=== PATIENT | female | born 1945 | race Caucasian/White ===

== ENCOUNTER 2017-11-13 14:44 | Emergency (ER) | payer OTHER ==
[~2017-11-13] VITALS: Ht 162.6 cm; Wt 75.7 kg
[~2017-11-13 14:44] MED LIST: CALTRATE 600600 MG PO; CRESTOR10 MG PO; EQ VISION FORM1 EACH PO; NABUMETONE500 MG PO; NAPROXEN250 MG PO; PERCOCET 5/3251 TAB PO; PRILOSEC20 MG PO
== END 2017-11-13 17:40 | disposition home or self-care (01) ==
LOC: ER 14:44
DX: N83.291 Other ovarian cyst, right side (principal); N39.0 Urinary tract infection, site not specified; R10.31 Right lower quadrant pain; R10.2 Pelvic and perineal pain

== ENCOUNTER → 2018-12-12 12:37 | Outpatient (CLI) | payer OTHER | END | disposition home or self-care (01) | LOC: LAB 12:37 | DX: N39.0 Urinary tract infection, site not specified (principal) ==

== ENCOUNTER 2020-12-06 08:29 | Outpatient (CLI) | payer OTHER | END 2020-12-06 09:17 | disposition home or self-care (01) | LOC: SONOGRAMA 08:29 | PROVIDERS: ATTEND Pathology Anatomic Pathology & Clinical Pathology | DX: E04.1 Nontoxic single thyroid nodule (principal); E04.8 Other specified nontoxic goiter; D34 Benign neoplasm of thyroid gland ==

== ENCOUNTER 2021-08-15 08:15 | Inpatient (IN) | payer OTHER ==
[~2021-08-15] VITALS: Ht 162.6 cm; Wt 75.7 kg
[2021-08-21] MEDS ORDERED: IBUPROFEN200 M1 (08:13)
[2021-08-21] MEDS ORDERED: BIOTIN10000 MCG (08:13)
== END 2021-08-22 18:54 | disposition home or self-care (01) | DRG 470 ==
LOC: SURG 08-20 05:30 → O/R 08-20 05:30 → OB/GYN 08-20 08:15 → SURG 08-20 11:19 → OB/GYN 08-20 12:15 → SURG 08-22 18:54
PROVIDERS: ADMIT Orthopaedic Surgery; ATTEND Orthopaedic Surgery
PROC: 0SRC0J9 Replacement of Right Knee Joint with Synthetic Substitute, Cemented, Open Approach (ICD-10-PCS; principal; 2021-08-20 12:15)
DX: M17.11 Unilateral primary osteoarthritis, right knee (principal); D62 Acute posthemorrhagic anemia; N39.0 Urinary tract infection, site not specified; M85.661 Other cyst of bone, right lower leg; Z20.822 Contact with and (suspected) exposure to COVID-19

== ENCOUNTER → 2022-01-29 | Emergency (ER) | payer OTHER ==
[~2022-01-29] VITALS: Ht 165.1 cm; Wt 75.3 kg
[~2022-01-29] MED LIST changes: +BIOTIN10000 MCG; +IBUPROFEN200 M1
== END | disposition home or self-care (01) ==
LOC: ER 13:01
DX: M25.561 Pain in right knee (principal); Z96.653 Presence of artificial knee joint, bilateral; M25.461 Effusion, right knee

== ENCOUNTER 2022-05-01 07:04 | Outpatient (CLI) | payer OTHER | END 2022-05-01 07:06 | disposition home or self-care (01) | LOC: NUCLEAR 07:04 | PROVIDERS: ATTEND Orthopaedic Surgery | DX: M25.561 Pain in right knee (principal) | CPT/HCPCS: 78315; A9503 ==

== ENCOUNTER → 2022-06-19 | Outpatient (CLI) | payer OTHER | END | disposition home or self-care (01) | LOC: RAD 14:12 | PROVIDERS: ATTEND Internal Medicine Rheumatology | DX: Z96.651 Presence of right artificial knee joint (principal) ==

== ENCOUNTER 2022-07-08 13:11 | Outpatient (CLI) | payer OTHER | END 2022-07-08 13:12 | disposition home or self-care (01) | LOC: RAD 13:11 | PROVIDERS: ATTEND Chiropractor | DX: M41.34 Thoracogenic scoliosis, thoracic region (principal); M99.03 Segmental and somatic dysfunction of lumbar region; M99.02 Segmental and somatic dysfunction of thoracic region ==

== ENCOUNTER 2022-09-18 14:53 | Outpatient (CLI) | payer OTHER | END 2022-09-18 14:57 | disposition home or self-care (01) | LOC: RAD 14:53 | PROVIDERS: ATTEND Orthopaedic Surgery | DX: M25.561 Pain in right knee (principal); M25.562 Pain in left knee ==

== ENCOUNTER 2023-06-09 13:06 | Outpatient (CLI) | payer OTHER | END 2023-06-09 13:17 | disposition home or self-care (01) | LOC: MAMO-SONO 13:06 | PROVIDERS: ATTEND Otolaryngology Otology & Neurotology | DX: N60.11 Diffuse cystic mastopathy of right breast (principal); N60.12 Diffuse cystic mastopathy of left breast; N85.00 Endometrial hyperplasia, unspecified; Z12.31 Encounter for screening mammogram for malignant neoplasm of breast ==

== ENCOUNTER 2023-07-20 14:16 | Outpatient (CLI) | payer OTHER | END 2023-07-20 14:21 | disposition home or self-care (01) | LOC: RAD 14:16 | PROVIDERS: ATTEND Internal Medicine Rheumatology | DX: M15.0 Primary generalized (osteo)arthritis (principal) ==

== ENCOUNTER 2023-12-09 13:17 | Outpatient (CLI) | payer OTHER | END 2023-12-09 13:29 | disposition home or self-care (01) | LOC: MRI 13:17 | DX: M48.07 Spinal stenosis, lumbosacral region (principal) | CPT/HCPCS: 72148 ==

== ENCOUNTER 2024-06-10 14:07 | Outpatient (CLI) | payer OTHER | END 2024-06-10 14:09 | disposition home or self-care (01) | LOC: RAD 14:07 | DX: M54.50 Low back pain, unspecified (principal) ==

== ENCOUNTER 2024-07-12 13:01 | Outpatient (CLI) | payer OTHER | END 2024-07-12 13:15 | disposition home or self-care (01) | LOC: RAD 13:01 | DX: R10.2 Pelvic and perineal pain (principal); N60.21 Fibroadenosis of right breast; N60.22 Fibroadenosis of left breast; M25.561 Pain in right knee; Z12.31 Encounter for screening mammogram for malignant neoplasm of breast ==

== ENCOUNTER 2024-08-02 13:15 | Outpatient (CLI) | payer OTHER | END 2024-08-03 07:52 | disposition home or self-care (01) | LOC: NUCLEAR 13:15 | PROVIDERS: ATTEND Obstetrics & Gynecology | DX: M81.0 Age-related osteoporosis without current pathological fracture (principal) ==

== ENCOUNTER 2025-03-20 09:57 | Outpatient (CLI) | payer OTHER | END 2025-03-20 10:03 | disposition home or self-care (01) | LOC: RAD 09:57 | PROVIDERS: ATTEND Internal Medicine Rheumatology | DX: M15.0 Primary generalized (osteo)arthritis (principal) ==